=== PATIENT | male | born 1980 | race African-American/Black ===

== ENCOUNTER 2021-01-01 09:35 | Emergency (ER) | payer MEDICAID, OTHER ==
[~2021-01-01] VITALS: Ht 185.4 cm; Wt 72.6 kg
[2021-01-01 11:03] VITALS: BP 122/67
== END 2021-01-01 12:52 | disposition home or self-care (01) ==
LOC: ER 09:35
DX: G51.0 Bell's palsy (principal); F17.210 Nicotine dependence, cigarettes, uncomplicated
CPT/HCPCS: 70450; 93005

== ENCOUNTER 2022-07-19 02:11 | Emergency (ER) | payer MEDICAID ==
[~2022-07-19] VITALS: Ht 157.5 cm; Wt 83.0 kg
[2022-07-19 03:00] VITALS: BP 95/55
[2022-07-19] MEDS ORDERED: DICL75TA2 PO (05:56)
[2022-07-19] MEDS ORDERED: EMTRTAB7 PO (05:56)
[2022-07-19] MEDS ORDERED: CYCL-837 PO (05:56)
[2022-07-19] MEDS ORDERED: FLUO0.054 TOP (05:56)
[2022-07-19] MEDS ORDERED: RITO100T PO (05:56)
== END 2022-07-19 06:22 | disposition left against medical advice (07) ==
LOC: ER 02:11
DX: S33.5XXA Sprain of ligaments of lumbar spine, initial encounter (principal); F17.210 Nicotine dependence, cigarettes, uncomplicated; W17.89XA Other fall from one level to another, initial encounter; Y93.89 Activity, other specified; Y92.89 Other specified places as the place of occurrence of the external cause; Y99.8 Other external cause status
CPT/HCPCS: 72131